=== PATIENT | male | born 1965 | race Caucasian/White ===

== ENCOUNTER 2019-07-30 05:05 | Inpatient (IN) | payer MEDICAID ==
[2019-07-30] MEDS ORDERED: ONDANSETRON 4 MG TAB.RAPDIS PO ONE (06:05)
[2019-07-30 06:32] LABS: ABSOLUTE BASOPHILS # (AUTO) 0.1 10^3/uL (0.0-0.2); ABSOLUTE EOSINOPHILS # (AUTO) 0.4 10^3/uL (0.0-0.6); ABSOLUTE LYMPHOCYTES (AUTO) 2.4 10^3/uL (0.5-4.7); ABSOLUTE MONOCYTES (AUTO) 0.6 10^3/uL (0.1-1.4); ABSOLUTE NEUT (AUTO) 6.9 10^3/uL (1.7-8.2); BASOPHILS % (AUTO) 0.7 % (0-2); EOSINOPHILS % (AUTO) 4.1 % (0-6); HEMATOCRIT 47.6 % (37.9-51.0); HEMOGLOBIN 15.7 g/dL (13.5-17.0); LYMPHOCYTES % (AUTO) 23.4 % (13-45); MEAN CORPUSCULAR HEMOGLOBIN 28.6 pg (27.0-33.4); MEAN CORPUSCULAR HGB CONC 32.9 g/dL (32.0-36.0); MEAN CORPUSCULAR VOLUME 87 fl (80-97); MONOCYTES % (AUTO) 5.5 % (3-13); PLATELET COUNT 195 10^3/uL (150-450); RED BLOOD COUNT 5.49 10^6/uL (4.35-5.55); RED CELL DISTRIBUTION WIDTH 15.8 % (11.5-14.0); SEGMENTED NEUTROPHILS % (AUTO) 66.3 % (42-78); TOTAL CELLS COUNTED % (AUTO) 100 %; WHITE BLOOD COUNT 10.4 10^3/uL (4.0-10.5)
[2019-07-30 06:51] LABS: ALBUMIN 4.4 g/dL (3.5-5.0); ALKALINE PHOSPHATASE 122 U/L (38-126); ANION GAP 19 (5-19); ASPARTATE AMINO TRANSFERASE 58 U/L (17-59); BILIRUBIN,DIRECT 0.3 mg/dL (0.0-0.4); BILIRUBIN,TOTAL 0.5 mg/dL (0.2-1.3); BLOOD UREA NITROGEN 5 mg/dL (7-20); CALCIUM 9.4 mg/dL (8.4-10.2); CARBON DIOXIDE 26 mmol/L (22-30); CHLORIDE 107 mmol/L (98-107); CREATINE KINASE 110 U/L (55-170); GLUCOSE 119 mg/dL (75-110); POTASSIUM 3.8 mmol/L (3.6-5.0); TOTAL PROTEIN 8.4 g/dL (6.3-8.2)
[2019-07-30 07:04] LABS: TROPONIN I < 0.012 ng/mL
--- NOTE | 2019-07-30 08:28 | RADIOLOGY REPORT (SQ) ---
EXAM DESCRIPTION: CHEST 2 VIEWS COMPLETED DATE/TIME: 07/30/2019 6:46 am REASON FOR STUDY: chest pain COMPARISON: None. EXAM PARAMETERS: NUMBER OF VIEWS: two views TECHNIQUE: Digital Frontal and Lateral radiographic views of the chest acquired. RADIATION DOSE: NA LIMITATIONS: none FINDINGS: LUNGS AND PLEURA: No opacities, masses or pneumothorax. No pleural effusion. MEDIASTINUM AND HILAR STRUCTURES: No masses or contour abnormalities. HEART AND VASCULAR STRUCTURES: Heart normal size. No evidence for failure. BONES: No acute findings. HARDWARE: None in the chest. OTHER: No other significant finding. IMPRESSION: NO ACUTE RADIOGRAPHIC FINDING IN THE CHEST. TECHNICAL DOCUMENTATION: JOB ID: [id number] [employer]- All Rights Reserved Reading location - IP/workstation name: [email or web address]
[2019-07-30] MEDS ORDERED: LORAZEPAM INJ 2 MG/1 ML VIAL IV ONE ×2 (09:03→10:06)
--- NOTE | 2019-07-30 09:13 | EKG REPORT ---
SEVERITY:- OTHERWISE NORMAL ECG - SINUS TACHYCARDIA : Confirmed by: Shukri Stafford MD 30-Jul-2019 09:13:05
[2019-07-30] MEDS: NORMAL SALINE 1000 ML 1,000 ML IV PRN ×3 (09:27→13:51)
--- NOTE | 2019-07-30 10:11 | ER Document Report ---
ED General - General Chief Complaint: Vomiting Stated Complaint: VOMITING/COUGH/SHAKING/LEFT ARM FEELS NUMB Time Seen by Provider: 07/30/19 09:03 Primary Care Provider: AMBER LOCK [NO LOCAL MD] - Follow up as needed Notes: 54-year-old male presents emergency department due to uncontrollable vomiting. Patient's illness apparently started with a cough, vomiting and rhinorrhea on , the vomiting and cough has been getting worse since then, patient does typically drink 7-8 beers every day and has been unable to keep any alcohol down for the past 48 hours. Significant other in the room states that when he is gotten like this before and had significant shaking like he has started to have today he has always had to be treated with Ativan for alcohol withdrawals. Patient has had a history of seizures from alcohol withdrawal in the past. Patient has not had any seizures with this episode. Patient would like to quit drinking. Complains of some intermittent right upper quadrant pain that he has had for over a month now, it does not worsen with food, it does sometimes worsen with vomiting. TRAVEL OUTSIDE OF THE [place] IN LAST 30 DAYS: No - Related Data Allergies/Adverse Reactions: ibuprofen Allergy (Verified 07/30/19 09:11) Past Medical History - General Information source: Patient - Social History Smoking Status: Never Smoker Frequency of alcohol use: Heavy Drug Abuse: None Family History: Reviewed & Not Pertinent Patient has suicidal ideation: No Patient has homicidal ideation: No - Past Medical History Cardiac Medical History: Reports: Hx Hypertension Review of Systems - Review of Systems Constitutional: See HPI, Chills, Diaphoresis, Malaise, Weakness EENT: No symptoms reported Cardiovascular: No symptoms reported Respiratory: See HPI Gastrointestinal: See HPI Neurological/Psychological: See HPI - Tremor -: Yes All other systems reviewed and negative Physical Exam - Vital signs Vitals: Temp Pulse Resp BP Pulse Ox 97.7 F 128 H 18 157/109 H 99 07/30/19 05:20 07/30/19 05:20 07/30/19 05:20 07/30/19 05:20 07/30/19 05:20 Interpretation: Hypertensive, Tachycardic - Notes Notes: GENERAL: Awake, tremor, appears mildly anxious. Does not appear to be in pain. No active vomiting on my examination though he was vomiting a lot in the waiting room. HEAD: Normocephalic, atraumatic EYES: Pupils equal, round and reactive to light, extraocular movements intact. ENT: Oral mucosa moist, tongue midline. NECK: Full range of motion, supple, trachea midline. LUNGS: Clear to auscultation bilaterally, no wheezes, rales or rhonchi, no respiratory distress. HEART: Regular rate and rhythm, no murmurs, gallops, rubs. ABDOMEN: Soft, nontender, nondistended, bowel sounds present in all 4 quadrants. EXTREMITIES: Moves all 4 extremities spontaneously, no edema, radial and dors brendan pedis pulses 2/4 bilaterally. No cyanosis. NEUROLOGICAL: Alert and oriented x3, normal speech, no facial droop, tremor that worsens with movement, biceps and patellar DTRs 2+ bilaterally. PSYCH: Mild anxiety. SKIN: Warm, Dry, normal turgor. Course - Re-evaluation Re-evalutation: 07/30/19 10:11 CBC unremarkable, CMP shows hypernatremia with a sodium of 151.7, glucose mildly elevated at 119, cardiac enzymes negative, alcohol level has been ordered, chest x-ray negative. Patient's presentation is consistent with alcohol withdrawal. 1 mg of Ativan has slowed his tremor somewhat and stopped his vomiting. Patient will be treated with another milligram of Ativan, hydrated and continue to be observed. Patient does wish to quit drinking. We will continue to reevaluate to see if he is stable to go to [place] [facility] or if he needs to be admitted here. 07/30/19 12:00 After second milligram of Ativan patient continued to have tremor and tachycardia, despite Reglan and Benadryl he does continue to have nausea, ga gging and dry heaving, cough leading to posttussive emesis despite negative chest x-ray. Patient ALFREDWA was initially 18, is now only down to 14 despite 2 of Ativan. Patient was discussed with Marina Dobson nurse practitioner, she agrees to accept the patient to her service for alcohol withdrawal. Patient will also be given albuterol and lidocaine neb to see if this will help with the coughing. - Vital Signs Vital signs: Temp Pulse Resp BP Pulse Ox 97.7 F 128 H 16 150/96 H 94 07/30/19 05:20 07/30/19 05:20 07/30/19 11:21 07/30/19 11:21 07/30/19 11:21 - Laboratory Result Diagrams: 07/30/19 06:10 07/30/19 06:10 Laboratory results interpreted by me: 07/30/19 07/30/19 06:10 06:10 RDW 15.8 H Sodium 151.7 H BUN 5 L Glucose 119 H Total Protein 8.4 H - EKG Interpretation by Me Additional EKG results interpreted by me: 07/30/19 10:12 EKG shows sinus tachycardia at a rate of 115, normal axis, normal intervals, no ST segment elevations or depressions, no T wave inversions per my interpre tation. Discharge - Discharge Clinical Impression: Alcohol abuse, Hypernatremia Alcohol withdrawal Qualifiers: Complication of substance-induced condition: uncomplicated Qualified Code(s): F10.230 - Alcohol dependence with withdrawal, uncomplicated Vomiting Qualifiers: Vomiting type: unspecified Vomiting Intractability: intractable Nausea presence: with nausea Qualified Code(s): R11.2 - Nausea with vomiting, unspecified Condition: Fair Disposition: ADMITTED INPATIENT Admitting Provider: Keith (Hospitalist) - [facility] Admitted: Telemetry Referrals: LOCALMD,NO [NO LOCAL MD] - Follow up as needed
[2019-07-30] MEDS ORDERED: DIPHENHYDRAMINE HCL 50 MG/ML VIAL IV ONE (10:43)
[2019-07-30] MEDS ORDERED: METOCLOPRAMIDE HCL INJ/PF 10 MG/2 ML SDV IV ONE (10:43)
[2019-07-30] MEDS ORDERED: ALBUTEROL SULFATE 0.083% NEB 2.5 MG/3 ML AMPUL NEB ONE (12:02)
[2019-07-30] MEDS ORDERED: LIDOCAINE 2% INJ-PF (20 MG/ML) 10 ML AMPUL NEB ONE (12:02)
[2019-07-30] MEDS ORDERED: NORMAL SALINE 1000 ML 1,000 ML IV ONE (12:47)
[2019-07-30] MEDS ORDERED: MAG HYDROX/AL HYDROX/SIMETH SUSP 30 ML UDCUP PO PRN (12:48)
[2019-07-30] MEDS ORDERED: ACETAMINOPHEN 650 MG SUPP.RECT PR PRN (12:48)
[2019-07-30] MEDS ORDERED: ALBUTEROL SULFATE 0.083% NEB 2.5 MG/3 ML AMPUL NEB PRN (12:48)
[2019-07-30] MEDS ORDERED: HYDRALAZINE HCL INJ/PF 20 MG/1 ML SDV IV PRN (12:53)
--- NOTE | 2019-07-30 13:09 | PDOC H&P ---
History of Present Illness Admission Date/PCP: 07/30/19 12:08 Patient complains of: Nausea vomiting, alcohol withdrawal History of Present Illness: CRIS VAIL is a 54 year old male with a past medical history of hypertension, GERD, alcohol dependence, and severe alcohol withdrawal (seizures, kidney failure requiring short-term dialysis, cardiac arrest) who presented to the emergency department today with a complaint of 2 to 3 days of rhinorrhea, congestion, sore throat, and nonproductive cough with posttussive emesis resulting in significant decrease in patient's daily alcohol intake. Patient reports that he drinks 7-8 beers daily had his usual intake since becoming ill with his upper respiratory infection. Evaluation in emergency department reveals obvious alcohol withdrawal with tachycardia, hypertension, diaphoresis, tremulousness, increased startle reflex, but essentially benign laboratory evaluation with normal CBC, unremarkable chemistry, normal troponins, negative chest x-ray, and EKG showing sinus tachycardia. Serum EtOH revealed alcohol level of 78. Patient has been provided 2 L normal saline bolus, IV Ativan, nebulizer treatments, and is referred to the hospitalist service for admission and management of the above-stated complaints and findings. Past Medical History Cardiac Medical History: Reports: Hypertension Pulmonary Medical History: Reports: Intubation, Respiratory Failure EENT Medical History: Reports: None Neurological Medical History: Reports: None Endocrine Medical History: Reports: None Renal/ Medical History: Reports: Other - Acute kidney failure requiring short- term dialysis Malignancy Medical History: Reports: None GI Medical History: Reports: Gastroesophageal Reflux Disease Musculoskeltal Medical History: Reports: None Psychiatric Medical History: Reports: Alcohol Dependency, General Anxiety Disorder Traumatic Medical History: Reports: None Hematology: Reports: None Infectious Medical History: Reports: None Social History Information Source: Patient, Relative Lives with: Spouse/Significant other Smoking Status: Never Smoker Electronic Cigarette use?: No Frequency of Alcohol Use: Heavy Last Alcohol Use: 07/28/19 Hx Recreational Drug Use: No Drugs: None Hx Prescription Drug Abuse: No - Advance Directive Resuscitation Status: Full Code Surrogate healthcare decision maker:: The patient's , Verna Amaya, Family History Family History: Reviewed & Not Pertinent Parental Family History Reviewed: Yes Children Family History Reviewed: Yes Sibling(s) Family History Reviewed.: Yes Medication/Allergy Allergies/Adverse Reactions: ibuprofen Allergy (Verified 07/30/19 09:11) Review of Systems Constitutional: ABSENT: chills, fever(s), headache(s), weight gain, weight loss Eyes: ABSENT: visual disturbances Ears: ABSENT: hearing changes Nose, Mouth, and Throat: PRESENT: as per HPI, sore throat Cardiovascular: ABSENT: chest pain, dyspnea on exertion, edema, orthropnea, palpitations Respiratory: PRESENT: cough. ABSENT: hemoptysis Gastrointestinal: PRESENT: nausea, vomiting. ABSENT: abdominal pain, constipation, diarrhea, hematemesis, hematochezia Genitourinary: ABSENT: dysuria, hematuria Musculoskeletal: ABSENT: joint swelling Integumentary: ABSENT: rash, wounds Neurological: PRESENT: confusion, tremor(s), weakness. ABSENT: abnormal gait, abnormal speech, dizziness, focal weakness, syncope Psychiatric: PRESENT: anxiety. ABSENT: depression, homidical ideation, suicidal ideation Endocrine: ABSENT: cold intolerance, heat intolerance, polydipsia, polyuria Hematologic/Lymphatic: ABSENT: easy bleeding, easy bruising Physical Exam Vital Signs: Temp Pulse Resp BP Pulse Ox 97.7 F 128 H 20 157/93 H 96 07/30/19 05:20 07/30/19 05:20 07/30/19 12:01 07/30/19 12:01 07/30/19 12:01 Intake & Output 07/29/19 07/30/19 07/31/19 06:59 06:59 06:59 Intake Total 1999 Balance 1999 Weight 79.9 kg General appearance: PRESENT: disheveled, mild distress, well-developed, well- nourished Head exam: PRESENT: atraumatic, normocephalic Eye exam: PRESENT: conjunctiva pink, EOMI, PERRLA. ABSENT: scleral icterus Ear exam: PRESENT: normal external ear exam Mouth exam: PRESENT: dry mucosa, tongue midline Respiratory exam: PRESENT: rhonchi, symmetrical, unlabored. ABSENT: rales, wheezes Cardiovascular exam: PRESENT: RRR, +S1, +S2, tachycardia. ABSENT: diastolic murmur, rubs, systolic murmur Pulses: PRESENT: normal dorsalis pedis pul Vascular exam: PRESENT: normal capillary refill GI/Abdominal exam: PRESENT: hypoactive bowel sounds, normal bowel sounds, soft. ABSENT: distended, guarding, mass, organolmegaly, rebound, tenderness Rectal exam: PRESENT: deferred Extremities exam: PRESENT: full ROM. ABSENT: calf tenderness, clubbing, pedal edema Neurological exam: PRESENT: alert, awake, oriented to person, oriented to place, oriented to time, oriented to situation, CN II-XII grossly intact, other - Diaphoretic, tremulous. ABSENT: motor sensory deficit Psychiatric exam: PRESENT: appropriate affect, normal mood. ABSENT: homicidal ideation, suicidal ideation Skin exam: PRESENT: dry, intact, warm. ABSENT: cyanosis, rash Results Laboratory Results: 07/30/19 06:10 07/30/19 06:10 07/30/19 07/30/19 07/30/19 06:10 06:10 09:20 WBC 10.4 RBC 5.49 Hgb 15.7 Hct 47.6 MCV 87 MCH 28.6 MCHC 32.9 RDW 15.8 H Plt Count 195 Seg Neutrophils % 66.3 Sodium 151.7 H Potassium 3.8 Chloride 107 Carbon Dioxide 26 Anion Gap 19 BUN 5 L Creatinine 1.03 Est GFR ( Amer) > 60 Glucose 119 H Calcium 9.4 Total Bilirubin 0.5 AST 58 Alkaline Phosphatase 122 Total Protein 8.4 H Albumin 4.4 Lipase 59.1 07/30/19 07/30/19 07/30/19 06:10 06:10 09:20 Creatine Kinase 110 CK-MB (CK-2) 0.90 Troponin I < 0.012 < 0.012 Impressions: Chest X-Ray 07/30/19 00:00 IMPRESSION: NO ACUTE RADIOGRAPHIC FINDING IN THE CHEST. Assessment and Plan - Diagnosis (1) Alcohol withdrawal Qualifiers: Complication of substance-induced condition: uncomplicated Qualified Code(s): F10.230 - Alcohol dependence with withdrawal, uncomplicated Is this a current diagnosis for this admission?: Yes Plan: Patient is admitted to [facility] on continuous cardiac telemetry. Start scheduled IV Valium. As needed IV Ativan. IV hydralazine as needed for blood pressure control. Continue generous IV fluids. Thiamine and folic acid replacement. Clear liquid diet; advance as tolerated Antiemetics as needed. PPI. Fall, seizure, aspiration precautions. (2) Tachycardia Is this a current diagnosis for this admission?: Yes Plan: Secondary to #1. Possibly also related to inability to tolerate prescribed Coreg for the last several days. Management of alcohol withdrawal as above. Continue home dose Coreg. Monitor on telemetry. (3) Hypertension Qualifiers: Hypertension type: essential hypertension Qualified Code(s): I10 - Essential (primary) hypertension Is this a current diagnosis for this admission?: Yes Plan: Complicated by acute alcohol withdrawal. Continue home dose Coreg. IV hydralazine as needed for blood pressure control. Management of alcohol withdrawal as above. (4) Alcohol dependence Qualifiers: Substance use status: in withdrawal Complication of substance-induced condition: uncomplicated Qualified Code(s): F10.230 - Alcohol dependence with withdrawal, uncomplicated Is this a current diagnosis for this admission?: Yes Plan: Discharge planning and patient navigator consulted. (5) Hypernatremia Is this a current diagnosis for this admission?: Yes Plan: Continue IV fluids. Follow-up chemistry. (6) Vomiting Qualifiers: Vomiting type: unspecified Vomiting Intractability: intractable Nausea presence: with nausea Qualified Code(s): R11.2 - Nausea with vomiting, unspecified Is this a current diagnosis for this admission?: Yes Plan: Secondary to #1. Management as above. (7) URI (upper respiratory infection) Qualifiers: URI type: unspecified viral URI Qualified Code(s): J06.9 - Acute upper respiratory infection, unspecified Is this a current diagnosis for this admission?: Yes Plan: Chest x-ray negative. Patient denies fever; does not appear acutely infectious. Supportive care/symptom management. Flonase. Robitussin as needed. - Time Time Spent with patient: 35 or more minutes Medications reviewed and adjusted accordingly: Yes Anticipated discharge: Home Within: within 72 hours - Inpatient Certification Based on my medical assessment, after consideration of the patient's comorbidities, presenting symptoms, or acuity I expect that the services needed warrant INPATIENT care.: Yes I certify that my determination is in accordance with my understanding of Medicare's requirements for reasonable and necessary INPATIENT services [42 CFR 412.3e].: Yes Medical Necessity: Need For IV Fluids, Need For Continuous Telemetry Monitoring
[2019-07-30] MEDS ORDERED: METOPROLOL TARTRATE PF/INJ 5 MG/5 ML SDV IV ONE (13:30)
[2019-07-30] MEDS: DIAZEPAM INJ 10 MG/2 ML DISP.SYRIN IV SCH ×2 (13:46→21:31)
[2019-07-30] MEDS: HEPARIN SOD (PORCINE) 5,000 UNIT/ML 1 ML VIAL SUBCUT SCH ×2 (15:05→21:31)
[2019-07-30] MEDS ORDERED: FLUTICASONE NASAL SPRAY 50 MCG/SPRY 120 SPRAY/16 GM NASL ONE (16:00)
[2019-07-30] MEDS: PROMETHAZINE HCL INJ 25 MG/1 ML VIAL IV PRN (16:30)
[2019-07-30] MEDS ORDERED: INFLUENZA QUAD (6MOS+) 2019-20 VAC 0.5 ML SYR IM ONE (17:43)
[2019-07-30] MEDS: NORMAL SALINE 1000 ML 1,000 ML with POTASSIUM CHLORIDE 20 MEQ, MAGNESIUM SULFATE 8 MEQ,... IV SCH ×5 (17:46)
[2019-07-30] MEDS: LORAZEPAM INJ 2 MG/1 ML VIAL IV PRN (17:50)
[2019-07-30] MEDS: ACETAMINOPHEN 325 MG TABLET PO PRN (21:30)
[2019-07-30] MEDS: CARVEDILOL 6.25 MG TABLET PO SCH (21:30)
[2019-07-30] MEDS: PANTOPRAZOLE SODIUM 40 MG VIAL IV SCH (21:31)
[2019-07-31] MEDS: DIAZEPAM INJ 10 MG/2 ML DISP.SYRIN IV SCH ×4 (01:52→17:48)
[2019-07-31] MEDS: GUAIFENESIN SYRP 200 MG/10 ML UDC PO PRN ×4 (01:58→22:26)
[2019-07-31] MEDS: ACETAMINOPHEN 325 MG TABLET PO PRN (04:20)
[2019-07-31] MEDS: ONDANSETRON 4 MG TAB.RAPDIS PO PRN ×2 (04:22→13:15)
[2019-07-31 05:32] LABS: HEMATOCRIT 37.8 % (37.9-51.0); MEAN CORPUSCULAR HGB CONC 33.5 g/dL (32.0-36.0); MEAN CORPUSCULAR VOLUME 87 fl (80-97); PLATELET COUNT 114 10^3/uL (150-450); RED BLOOD COUNT 4.37 10^6/uL (4.35-5.55); WHITE BLOOD COUNT 6.1 10^3/uL (4.0-10.5)
[2019-07-31 05:41] LABS: HEMOGLOBIN 12.7 g/dL (13.5-17.0)
[2019-07-31 05:54] LABS: ANION GAP 8 (5-19); BLOOD UREA NITROGEN 3 mg/dL (7-20); CALCIUM 7.9 mg/dL (8.4-10.2); CARBON DIOXIDE 25 mmol/L (22-30); CHLORIDE 111 mmol/L (98-107); GLUCOSE 86 mg/dL (75-110); POTASSIUM 3.4 mmol/L (3.6-5.0)
[2019-07-31] MEDS: HEPARIN SOD (PORCINE) 5,000 UNIT/ML 1 ML VIAL SUBCUT SCH ×3 (06:04→21:22)
[2019-07-31] MEDS: NORMAL SALINE 1000 ML 1,000 ML IV PRN ×2 (07:02→16:30)
[2019-07-31] MEDS: PROMETHAZINE HCL INJ 25 MG/1 ML VIAL IV PRN (10:26)
[2019-07-31] MEDS: PANTOPRAZOLE SODIUM 40 MG VIAL IV SCH ×2 (10:26→21:22)
[2019-07-31] MEDS: LORAZEPAM INJ 2 MG/1 ML VIAL IV PRN (10:26)
[2019-07-31] MEDS: FLUTICASONE NASAL SPRAY 50 MCG/SPRY 120 SPRAY/16 GM NASL SCH (10:27)
[2019-07-31] MEDS: CARVEDILOL 6.25 MG TABLET PO SCH ×2 (10:27→21:22)
--- NOTE | 2019-07-31 13:03 | PDOC PROGRESS REPORT ---
Subjective Progress Note for:: 07/31/19 Subjective:: CRIS VAIL is a 54 year old male with a past medical history of hypertension, GERD, alcohol dependence, and severe alcohol withdrawal (seizures, kidney failure requiring short-term dialysis, cardiac arrest) who was admitted 07/30/2023 EtOH withdrawal. Patient was seen on morning rounds with his significant other present. He is found resting in bed, comfortably, on room air. He reports he is feeling much better today. He does have continued nausea and generalized abdominal discomfort, but without emesis. He continues to have diaphoresis and hand tremors although these are also significantly improved as compared to yesterday. He denies interest in inpatient alcohol rehabilitation services. He does ask about possible discharge prescription of Antabuse. Otherwise he has no questions or concerns at this time. He denies fever, chills, chest pain, palpitations, dyspnea. No concerns per nursing. Reason For Visit: ALCOHOL WITHDRAWAL, ALCOHOL ABUSE, HYPERNATREMIA, Physical Exam Vital Signs: Temp Pulse Resp BP Pulse Ox 97.5 F 85 18 146/92 H 95 07/31/19 11:32 07/31/19 11:32 07/31/19 11:32 07/31/19 11:32 07/31/19 11:32 Intake & Output 07/30/19 07/31/19 08/01/19 06:59 06:59 06:59 Intake Total 4023 1000 Balance 4023 1000 Weight 79.9 kg 75.6 kg General appearance: PRESENT: no acute distress, cooperative, well-developed, well-nourished Head exam: PRESENT: atraumatic, normocephalic Eye exam: PRESENT: conjunctiva pink, EOMI, PERRLA. ABSENT: scleral icterus Ear exam: PRESENT: normal external ear exam Mouth exam: PRESENT: moist, tongue midline Respiratory exam: PRESENT: clear to auscultation sylvester, symmetrical, unlabored. ABSENT: rales, rhonchi, wheezes Cardiovascular exam: PRESENT: RRR, +S1, +S2. ABSENT: diastolic murmur, rubs, systolic murmur Pulses: PRESENT: normal dorsalis pedis pul Vascular exam: PRESENT: normal capillary refill GI/Abdominal exam: PRESENT: normal bowel sounds, soft. ABSENT: distended, guarding, mass, organolmegaly, rebound, tenderness Rectal exam: PRESENT: deferred Extremities exam: PRESENT: full ROM. ABSENT: calf tenderness, clubbing, pedal edema Neurological exam: PRESENT: alert, awake, oriented to person, oriented to place, oriented to time, oriented to situation, CN II-XII grossly intact, other - Tremulous. ABSENT: motor sensory deficit Psychiatric exam: PRESENT: anxious, appropriate affect, normal mood. ABSENT: homicidal ideation, suicidal ideation Skin exam: PRESENT: dry, intact, warm. ABSENT: cyanosis, rash Results Laboratory Results: 07/31/19 04:30 07/31/19 04:30 07/31/19 07/31/19 04:30 04:30 WBC 6.1 RBC 4.37 Hgb 12.7 L D Hct 37.8 L MCV 87 MCH 29.0 MCHC 33.5 RDW 16.0 H Plt Count 114 L Sodium 143.6 Potassium 3.4 L Chloride 111 H Carbon Dioxide 25 Anion Gap 8 BUN 3 L Creatinine 0.78 Est GFR ( Amer) > 60 Glucose 86 Calcium 7.9 L 07/30/19 07/30/19 07/30/19 06:10 06:10 09:20 Creatine Kinase 110 CK-MB (CK-2) 0.90 Troponin I < 0.012 < 0.012 Impressions: Chest X-Ray 07/30/19 00:00 IMPRESSION: NO ACUTE RADIOGRAPHIC FINDING IN THE CHEST. Assessment and Plan - Diagnosis (1) Alcohol withdrawal Qualifiers: Complication of substance-induced condition: uncomplicated Qualified Co de(s): F10.230 - Alcohol dependence with withdrawal, uncomplicated Is this a current diagnosis for this admission?: Yes Plan: Patient is admitted to [facility] on continuous cardiac telemetry. Start scheduled IV Valium; will begin weaning tomorrow. As needed IV Ativan. IV hydralazine as needed for blood pressure control. Continue generous IV fluids. Thiamine and folic acid replacement. Clear liquid diet; advance as tolerated Antiemetics as needed. PPI. Fall, seizure, aspiration precautions. (2) Tachycardia Is this a current diagnosis for this admission?: Yes Plan: Improved. Secondary to #1. Management of alcohol withdrawal as above. Continue home dose Coreg. Monitor on telemetry. (3) Hypertension Qualifiers: Hypertension type: essential hypertension Qualified Code(s): I10 - Essentia l (primary) hypertension Is this a current diagnosis for this admission?: Yes Plan: Complicated by acute alcohol withdrawal. Continue home dose Coreg. IV hydralazine as needed for blood pressure control. Management of alcohol withdrawal as above. (4) Alcohol dependence Qualifiers: Substance use status: in withdrawal Complication of substance-induced condition: uncomplicated Qualified Code(s): F10.230 - Alcohol dependence with withdrawal, uncomplicated Is this a current diagnosis for this admission?: Yes Plan: Discharge planning and patient navigator consulted. (5) Hypernatremia Is this a current diagnosis for this admission?: Yes Plan: Resolved. Continue IV fluids. Follow-up chemistry. (6) Vomiting Qualifiers: Vomiting type: unspecified Vomiting Intractability: intractable Nausea presence: with nausea Qualified Code(s): R11.2 - Nausea with vomiting, unspecified Is this a current diagnosis for this admission?: Yes Plan: Secondary to #1. Management as above. (7) URI (upper respiratory infection) Qualifiers: URI type: unspecified viral URI Qualified Code(s): J06.9 - Acute upper respiratory infection, unspecified Is this a current diagnosis for this admission?: Yes Plan: Chest x-ray negative. Patient denies fever; does not appear acutely infectious. Supportive care/symptom management. Flonase. Robitussin as needed.
[2019-07-31] MEDS: NORMAL SALINE 1000 ML 1,000 ML with POTASSIUM CHLORIDE 20 MEQ, MAGNESIUM SULFATE 8 MEQ,... IV SCH ×5 (17:47)
[2019-08-01] MEDS: DIAZEPAM INJ 10 MG/2 ML DISP.SYRIN IV SCH ×4 (00:21→20:44)
[2019-08-01] MEDS: LORAZEPAM INJ 2 MG/1 ML VIAL IV PRN ×3 (06:07→21:38)
[2019-08-01] MEDS: HEPARIN SOD (PORCINE) 5,000 UNIT/ML 1 ML VIAL SUBCUT SCH ×3 (06:19→21:38)
[2019-08-01 06:47] LABS: HEMATOCRIT 40.3 % (37.9-51.0); HEMOGLOBIN 13.6 g/dL (13.5-17.0); MEAN CORPUSCULAR HEMOGLOBIN 29.1 pg (27.0-33.4); MEAN CORPUSCULAR HGB CONC 33.6 g/dL (32.0-36.0); MEAN CORPUSCULAR VOLUME 86 fl (80-97); PLATELET COUNT 123 10^3/uL (150-450); RED BLOOD COUNT 4.67 10^6/uL (4.35-5.55); RED CELL DISTRIBUTION WIDTH 15.6 % (11.5-14.0); WHITE BLOOD COUNT 6.3 10^3/uL (4.0-10.5)
[2019-08-01] MEDS ORDERED: HALOPERIDOL LACTATE INJ 5 MG/1 ML VIAL ONE (06:54)
[2019-08-01] MEDS ORDERED: LORAZEPAM INJ 2 MG/1 ML VIAL ONE ×2 (06:55→07:55)
[2019-08-01] MEDS ORDERED: HALOPERIDOL LACTATE INJ 5 MG/1 ML VIAL IV ONE (07:00)
[2019-08-01] MEDS ORDERED: LORAZEPAM INJ 2 MG/1 ML VIAL IV ONE ×2 (07:00→08:15)
[2019-08-01 07:07] LABS: ANION GAP 8 (5-19); BLOOD UREA NITROGEN 2 mg/dL (7-20); CALCIUM 8.4 mg/dL (8.4-10.2); CARBON DIOXIDE 24 mmol/L (22-30); CHLORIDE 110 mmol/L (98-107); GLUCOSE 83 mg/dL (75-110); POTASSIUM 3.4 mmol/L (3.6-5.0)
[2019-08-01] MEDS ORDERED: HALOPERIDOL 5 MG TABLET PO PRN (07:25)
--- NOTE | 2019-08-01 08:47 | PDOC PROGRESS REPORT ---
Subjective Progress Note for:: 08/01/19 Subjective:: CRIS VAIL is a 54 year old male with a past medical history of hypertension, GERD, alcohol dependence, and severe alcohol withdrawal (seizures, kidney failure requiring short-term dialysis, cardiac arrest) who was admitted 07/30/2023 EtOH withdrawal. Patient was seen on morning rounds. He is found resting in bed, on room air, and currently in 3 point restraints. He is alert and orientated to self and year. He tells me that he has been kidnapped and that people are accusing him of IVDU. He asks me to help call his girlfriend so that she knows where he is and doesn't worry; per nursing, girlfriend left shortly before my arrival. During our discussion, he does continue to pull and kick out of the restraints. He denies fever, chills, chest pain, palpitations, dyspnea, abdominal pain. Patient received scheduled Valium 10 mg IV at ~6am, Ativan 2 mg IV shortly after. Approximately 25 minutes later, patient was found in another patient's room, IV having been removed, and acutely agitated. He was ordered Haldol 5mg IV and another Ativan 4 mg IV at that time. At the time of my visit, (~8:20 am) patient is still agitated and pulling at restraints. Due to agitation, need for large amount of benzos, and likely need for 4 point restraints, I have discussed the patient with Dr. Cedillo. He has graciously agreed to accept the patient to the ICU for management of EtOH withdrawal with delirium. Reason For Visit: ALCOHOL WITHDRAWAL Physical Exam Vital Signs: Temp Pulse Resp BP Pulse Ox 98.5 F 87 21 H 143/91 H 96 08/01/19 04:14 08/01/19 06:43 08/01/19 04:14 08/01/19 04:14 08/01/19 04:14 Intake & Output 07/31/19 08/01/19 08/02/19 06:59 06:59 06:59 Intake Total 4023 3479 Output Total 4470 Balance 4023 1629 Weight 75.6 kg 77.4 kg General appearance: PRESENT: no acute distress, disheveled, well-developed, well-nourished - overweight. ABSENT: cooperative Head exam: PRESENT: atraumatic, normocephalic Eye exam: PRESENT: conjunctiva pink, EOMI, PERRLA. ABSENT: scleral icterus Ear exam: PRESENT: normal external ear exam Mouth exam: PRESENT: moist, tongue midline Teeth exam: PRESENT: poor dentation Respiratory exam: PRESENT: clear to auscultation sylvester, symmetrical, unlabored. ABSENT: rales, rhonchi, wheezes Cardiovascular exam: PRESENT: RRR, +S1, +S2, tachycardia. ABSENT: diastolic murmur, rubs, systolic murmur Pulses: PRESENT: normal dorsalis pedis pul Vascular exam: PRESENT: normal capillary refill GI/Abdominal exam: PRESENT: normal bowel sounds, soft. ABSENT: distended, guarding, mass, organolmegaly, rebound, tenderness Rectal exam: PRESENT: deferred Extremities exam: PRESENT: full ROM. ABSENT: calf tenderness, clubbing, pedal edema Musculoskeletal exam: PRESENT: ambulatory Neurological exam: PRESENT: alert, awake, oriented to person, oriented to place, CN II-XII grossly intact, other - Acutely agitated, diaphoretic, tremulous.. ABSENT: oriented to time, oriented to situation, motor sensory deficit Psychiatric exam: PRESENT: agitated, appropriate affect. ABSENT: homicidal ideation, suicidal ideation Skin exam: PRESENT: dry, intact, warm. ABSENT: cyanosis, rash Results Laboratory Results: 08/01/19 06:39 08/01/19 06:39 08/01/19 08/01/19 06:39 06:39 WBC 6.3 RBC 4.67 Hgb 13.6 Hct 40.3 MCV 86 MCH 29.1 MCHC 33.6 RDW 15.6 H Plt Count 123 L Sodium 141.9 Potassium 3.4 L Chloride 110 H Carbon Dioxide 24 Anion Gap 8 BUN 2 L Creatinine 0.74 Est GFR ( Amer) > 60 Glucose 83 Calcium 8.4 07/30/19 07/30/19 07/30/19 06:10 06:10 09:20 Creatine Kinase 110 CK-MB (CK-2) 0.90 Troponin I < 0.012 < 0.012 Impressions: Chest X-Ray 07/30/19 00:00 IMPRESSION: NO ACUTE RADIOGRAPHIC FINDING IN THE CHEST. Assessment and Plan - Diagnosis (1) Alcohol withdrawal Qualifiers: Complication of substance-induced condition: with delirium Qualified Code(s): F10.231 - Alcohol dependence with withdrawal delirium Is this a current diagnosis for this admission?: Yes Plan: Discussed with Dr. Cedillo; patient is upgraded to the ICU. Start scheduled IV Valium. As needed IV Ativan. As needed IV Haldol. IV hydralazine as needed for blood pressure control. Continue generous IV fluids. Thiamine and folic acid replacement. Clear liquid diet; advance as tolerated Antiemetics as needed. PPI. Fall, seizure, aspiration precautions. (2) Tachycardia Is this a current diagnosis for this admission?: Yes Plan: Improved. Secondary to #1. Management of alcohol withdrawal as above. Continue home dose Coreg. Monitor on telemetry. (3) Hypertension Qualifiers: Hypertension type: essential hypertension Qualified Code(s): I10 - Essential (primary) hypertension Is this a current diagnosis for this admission?: Yes Plan: Complicated by acute alcohol withdrawal. Continue home dose Coreg. IV hydralazine as needed for blood pressure control. Management of alcohol withdrawal as above. (4) Alcohol dependence Qualifiers: Substance use status: in withdrawal Complication of substance-induced condition: uncomplicated Qualified Code(s): F10.230 - Alcohol dependence with withdrawal, uncomplicated Is this a current diagnosis for this admission?: Yes Plan: Discharge planning and patient navigator consulted. (5) Hypernatremia Is this a current diagnosis for this admission?: Yes Plan: Resolved. Continue IV fluids. Follow-up chemistry. (6) Vomiting Qualifiers: Vomiting type: unspecified Vomiting Intractability: intractable Nausea presence: with nausea Qualified Code(s): R11.2 - Nausea with vomiting, unspecified Is this a current diagnosis for this admission?: Yes Plan: Secondary to #1. Management as above. (7) URI (upper respiratory infection) Qualifiers: URI type: unspecified viral URI Qualified Code(s): J06.9 - Acute upper respiratory infection, unspecified Is this a current diagnosis for this admission?: Yes Plan: Chest x-ray negative. Patient denies fever; does not appear acutely infectious. Supportive care/symptom management. Flonase. Robitussin as needed. - Time Time Spent with patient: 25-34 minutes Medications reviewed and adjusted accordingly: Yes
[2019-08-01] MEDS: NORMAL SALINE 1000 ML 1,000 ML IV PRN (09:15)
--- NOTE | 2019-08-01 09:22 | CRITICAL CARE ADMISSION REPORT ---
HPI Date:: 08/01/19 Time:: 08:30 Reason for ICU Reason:: High dose benzodiazipines for ETOH WD. Need for 4 pt restraints. Possible intubation. HPI: This patient is a 54 yop man with a well documented history of drinking alcohol. He has been through a violent alcohol WD several years ago requiring intubation. ARF with temporary dialysis. He requests to stop drinking and has been suffering WD for more than 2 days and according to RN and hospitalist staff his needs have been escalating. He is a safety risk. Needs 4 point restraints and probably more ativan. This will be accomplished in an ICU setting. History obtained from:: Patient (confused) Marina Dobson, wait staff, old records. - Diagnosis/Plan (1) Alcohol dependence Qualifiers: Substance use status: in withdrawal Complication of substance-induced condition: uncomplicated Qualified Code(s): F10.230 - Alcohol dependence with withdrawal, uncomplicated Is this a current diagnosis for this admission?: Yes Plan: Patient wishes to quit. Prefers no in patient rehab. Will reassess when withdrawal has run its course. (2) Alcohol withdrawal Qualifiers: Complication of substance-induced condition: with delirium Qualified Code(s): F10.231 - Alcohol dependence with withdrawal delirium Is this a current diagnosis for this admission?: Yes Plan: Right now he needs 4-point restraints, more ativan, possibly precedex. (3) Vomiting Qualifiers: Vomiting type: unspecified Vomiting Intractability: intractable Nausea presence: with nausea Qualified Code(s): R11.2 - Nausea with vomiting, unspecified Is this a current diagnosis for this admission?: Yes Plan: Seems resolved, may be related to withdrawal. (4) Hypernatremia Is this a current diagnosis for this admission?: Yes Plan: Sodium 142. Resolved. - . Plan Summary: Four point restraints. Hihger level of ativan. Precedex. Past Medical History Cardiac Medical History: Reports: Hypertension Pulmonary Medical History: Reports: Intubation, Respiratory Failure EENT Medical History: Reports: None Neurological Medical History: Reports: None Endocrine Medical History: Reports: None Renal/ Medical History: Reports: Other - Acute kidney failure requiring short- term dialysis Malignancy Medical History: Reports: None GI Medical History: Reports: Gastroesophageal Reflux Disease Musculoskeltal Medical History: Reports: None Psychiatric Medical History: Reports: Alcohol Dependency, Depression - ALYX, General Anxiety Disorder Traumatic Medical History: Reports: None Hematology: Reports: None Infectious Medical History: Reports: None Social/Family History - Social History Lives with: Spouse/Significant other Smoking Status: Never Smoker Frequency of Alcohol Use: Heavy Hx Recreational Drug Use: No Drugs: None Hx Prescription Drug Abuse: No - Medication/Allergies Home Medications: No Home Medications 07/30/19 Allergies/Adverse Reactions: ibuprofen Allergy (Verified 07/30/19 09:11) Review of Systems ROS unobtainable: Due to mental status Physical Exam Vital Signs: Temp Pulse Resp BP Pulse Ox 98.2 F 87 19 145/92 H 97 08/01/19 08:10 08/01/19 08:10 08/01/19 08:10 08/01/19 08:10 08/01/19 08:10 Intake & Output 07/31/19 08/01/19 08/02/19 06:59 06:59 06:59 Intake Total 4023 3479 Output Total 1850 Balance 4023 1629 Weight 75.6 kg 77.4 kg Weight/Height Weight 77.4 kg Height 5 ft 10 in General appearance: PRESENT: no acute distress, disheveled Exam: Confused Head exam: PRESENT: atraumatic, normocephalic Eye exam: PRESENT: conjunctiva pink, EOMI, PERRLA. ABSENT: scleral icterus Ear exam: PRESENT: normal external ear exam Mouth exam: PRESENT: moist, tongue midline Respiratory exam: PRESENT: clear to auscultation sylvester. ABSENT: rales, rhonchi, wheezes Cardiovascular exam: PRESENT: RRR. ABSENT: diastolic murmur, rubs, systolic murmur GI/Abdominal exam: PRESENT: normal bowel sounds, soft. ABSENT: distended, guarding, mass, organolmegaly, rebound, tenderness Rectal exam: PRESENT: deferred Extremities exam: PRESENT: full ROM. ABSENT: calf tenderness, clubbing, pedal edema Musculoskeletal exam: PRESENT: normal inspection Neurological exam: PRESENT: alert, altered, awake, oriented to person Psychiatric exam: PRESENT: agitated, anxious Skin exam: PRESENT: dry, intact, warm. ABSENT: cyanosis, rash Laboratory/Radiographs Laboratory Results: 08/01/19 06:39 08/01/19 06:39 08/01/19 08/01/19 06:39 06:39 WBC 6.3 RBC 4.67 Hgb 13.6 Hct 40.3 MCV 86 MCH 29.1 MCHC 33.6 RDW 15.6 H Plt Count 123 L Sodium 141.9 Potassium 3.4 L Chloride 110 H Carbon Dioxide 24 Anion Gap 8 BUN 2 L Creatinine 0.74 Est GFR ( Amer) > 60 Glucose 83 Calcium 8.4 07/30/19 07/30/19 07/30/19 06:10 06:10 09:20 Creatine Kinase 110 CK-MB (CK-2) 0.90 Troponin I < 0.012 < 0.012 Impressions: Chest X-Ray 07/30/19 00:00 IMPRESSION: NO ACUTE RADIOGRAPHIC FINDING IN THE CHEST. All labs, radiographs, diagnostic studies and EKGs were personally reviewed: Yes In addition, reports of radiographic and diagnostic studies were read: Yes Critical Time Critical Time (minutes): 30 -: The care of a critically ill patient is dynamic. This note represents a static moment in the admission process. Orders and treatments may be given simultaneously and urgently, and time is not business center representative of the treatment process. This patient requires Critical Care secondary to life threatening organ or limb dysfunction. Without Critical Care services, the patient is at risk for increased mortality and morbidity.
[2019-08-01] MEDS: PROMETHAZINE HCL INJ 25 MG/1 ML VIAL IV PRN (09:54)
[2019-08-01] MEDS ORDERED: DEXMEDETOMIDINE IN 0.9 % NACL 400 MCG/100 ML RTUPB IV ONE (10:47)
[2019-08-01] MEDS ORDERED: LORAZEPAM INJ 2 MG/1 ML VIAL IV PRN ×2 (10:47→10:49)
[2019-08-01] MEDS: DEXMEDETOMIDINE IN NS 400 MCG/100 ML RTUPB IV PRN ×2 (10:50→17:00)
[2019-08-01] MEDS: CARVEDILOL 6.25 MG TABLET PO SCH ×2 (11:27→21:38)
[2019-08-01] MEDS: FLUTICASONE NASAL SPRAY 50 MCG/SPRY 120 SPRAY/16 GM NASL SCH (11:27)
[2019-08-01] MEDS: PANTOPRAZOLE SODIUM 40 MG VIAL IV SCH ×2 (13:58→21:39)
[2019-08-01] MEDS: NORMAL SALINE 1000 ML 1,000 ML with POTASSIUM CHLORIDE 20 MEQ, MAGNESIUM SULFATE 8 MEQ,... IV SCH ×5 (17:39)
[2019-08-02] MEDS: DIAZEPAM INJ 10 MG/2 ML DISP.SYRIN IV SCH ×5 (00:20→23:55)
[2019-08-02] MEDS: NORMAL SALINE 1000 ML 1,000 ML IV PRN ×2 (00:20→17:48)
[2019-08-02] MEDS: POTASSI CL 20 MEQ/50 ML RIDER 20 MEQ/50 ML RTUPB IV SCH ×2 (00:20→01:52)
[2019-08-02] MEDS: LORAZEPAM INJ 2 MG/1 ML VIAL IV PRN (02:14)
[2019-08-02 04:32] LABS: ANION GAP 7 (5-19); BLOOD UREA NITROGEN 5 mg/dL (7-20); CALCIUM 7.9 mg/dL (8.4-10.2); CARBON DIOXIDE 24 mmol/L (22-30); CHLORIDE 110 mmol/L (98-107); GLUCOSE 77 mg/dL (75-110); PHOSPHORUS 3.5 mg/dL (2.5-4.5)
[2019-08-02 04:39] LABS: POTASSIUM 4.5 mmol/L (3.6-5.0)
[2019-08-02] MEDS: DEXMEDETOMIDINE IN NS 400 MCG/100 ML RTUPB IV PRN (05:06)
[2019-08-02] MEDS: HEPARIN SOD (PORCINE) 5,000 UNIT/ML 1 ML VIAL SUBCUT SCH ×3 (05:13→21:26)
[2019-08-02] MEDS: CARVEDILOL 6.25 MG TABLET PO SCH ×2 (10:33→21:26)
[2019-08-02] MEDS: FLUTICASONE NASAL SPRAY 50 MCG/SPRY 120 SPRAY/16 GM NASL SCH (10:33)
--- NOTE | 2019-08-02 11:39 | PDOC CRITICAL CARE PROG REPORT ---
General Date:: 08/02/19 ICU Day:: 2 Hospital Day:: 3 Resuscitation Status: Full Code Events in the past 12 to 24 Hours:: Much more lucid Review of systems relevant to events:: Neurological and CV Reason for ICU Addmission:: High dose benzodiazipines for ETOH WD. Need for 4 pt restraints. Possible intubation. - Medications: Medications reviewed and adjusted accordingly: Yes Vasopressors:: None Sedation:: Precedex off this AM Physical Exam Vital Signs: Temp Pulse Resp BP Pulse Ox 98.4 F 78 22 H 117/80 94 08/02/19 10:00 08/02/19 10:00 08/02/19 10:00 08/02/19 10:00 08/02/19 10:00 Intake & Output 08/01/19 08/02/19 08/03/19 06:59 06:59 06:59 Intake Total 3479 2094 1049 Output Total 1850 2475 150 Balance 1629 -381 899 Weight 77.4 kg 81.7 kg Weight/Height Weight 81.7 kg Height 5 ft 10 in General appearance: PRESENT: no acute distress, well-developed, well-nourished Head exam: PRESENT: atraumatic, normocephalic Eye exam: PRESENT: conjunctiva pink, EOMI, PERRLA. ABSENT: scleral icterus Ear exam: PRESENT: normal external ear exam Mouth exam: PRESENT: moist, tongue midline Respiratory exam: PRESENT: clear to auscultation sylvester. ABSENT: rales, rhonchi, wheezes Cardiovascular exam: PRESENT: RRR. ABSENT: diastolic murmur, rubs, systolic murmur GI/Abdominal exam: PRESENT: normal bowel sounds, soft. ABSENT: distended, guarding, mass, organolmegaly, rebound, tenderness Rectal exam: PRESENT: deferred Extremities exam: PRESENT: full ROM. ABSENT: calf tenderness, clubbing, pedal edema Neurological exam: PRESENT: alert, altered, awake, oriented to person, oriented to place Skin exam: PRESENT: dry, intact, warm. ABSENT: cyanosis, rash Laboratory/Radiographs Laboratory Results: 08/01/19 06:39 08/02/19 03:56 08/02/19 03:56 Sodium 140.7 Potassium 4.5 D Chloride 110 H Carbon Dioxide 24 Anion Gap 7 BUN 5 L Creatinine 0.76 Est GFR ( Amer) > 60 Glucose 77 Calcium 7.9 L Phosphorus 3.5 Magnesium 1.7 07/30/19 07/30/19 07/30/19 06:10 06:10 09:20 Creatine Kinase 110 CK-MB (CK-2) 0.90 Troponin I < 0.012 < 0.012 Impressions: Chest X-Ray 07/30/19 00:00 IMPRESSION: NO ACUTE RADIOGRAPHIC FINDING IN THE CHEST. All labs, radiographs, diagnostic studies and EKGs were personally reviewed: Yes In addition, reports of radiographic and diagnostic studies were read: Yes Assessment and Plan - Diagnosis (1) Alcohol dependence Qualifiers: Substance use status: in withdrawal Complication of substance-induced condition: uncomplicated Qualified Code(s): F10.230 - Alcohol dependence with withdrawal, uncomplicated Is this a current diagnosis for this admission?: Yes Plan: He has been through [facility] several times before. Wants to try antabuse from primary care Physician. He has 1st degree male relative who are alcoholic as well. He is out of restraints now and if he remains calm will downgrade later today. (2) Alcohol withdrawal Qualifiers: Complication of substance-induced condition: with delirium Qualified Code(s): F10.231 - Alcohol dependence with withdrawal delirium Is this a current diagnosis for this admission?: Yes Plan: As above. Doing much better. Continue ativan discontinue precedex. (3) Vomiting Qualifiers: Vomiting type: unspecified Vomiting Intractability: intractable Nausea presence: with nausea Qualified Code(s): R11.2 - Nausea with vomiting, unspecified Is this a current diagnosis for this admission?: Yes Plan: Resolved (4) Hypernatremia Is this a current diagnosis for this admission?: Yes Plan: Resolved Plan Summary: Downgrade if he remains oriented and calm later today. Critical Time Critical Time (minutes): 35 Level of Care: ICU Anticipated discharge: Home Within: within 72 hours -: 1. The care of a critical patient is a dynamic process. This note is a sales representative door to door synopsis but static in nature. The timeframe for treatments given in order is not necessarily the actual time these treatments may have been done. 2. This patient requires critical care secondary to ongoing requirements for therapy not offered or safe outside the critical care environment. Transfer to a lower level of care will result in altered life or limb morbidity and mortality. 3. Multidisciplinary rounds completed. 4. ABCDE bundle addressed.
[2019-08-02] MEDS: PANTOPRAZOLE SODIUM 40 MG VIAL IV SCH (11:57)
[2019-08-02] MEDS: GUAIFENESIN SYRP 200 MG/10 ML UDC PO PRN (17:36)
[2019-08-03] MEDS: DIAZEPAM INJ 10 MG/2 ML DISP.SYRIN IV SCH (05:17)
[2019-08-03] MEDS: HEPARIN SOD (PORCINE) 5,000 UNIT/ML 1 ML VIAL SUBCUT SCH (05:17)
[2019-08-03] MEDS: NORMAL SALINE 1000 ML 1,000 ML IV PRN (05:18)
[2019-08-03 07:53] VITALS: BP 155/100
[2019-08-03] MEDS ORDERED: DIAZEPAM 5 MG TABLET PO PRN (08:04)
[2019-08-03] MEDS ORDERED: DISULFIRAM 250 MG TABLET PO SCH (10:00)
[2019-08-03] MEDS: CARVEDILOL 6.25 MG TABLET PO SCH (11:06)
[2019-08-03] MEDS: FLUTICASONE NASAL SPRAY 50 MCG/SPRY 120 SPRAY/16 GM NASL SCH (11:08)
--- NOTE | 2019-08-03 11:59 | PDOC DISCHARGE SUMMARY ---
Impression - Admit/DC Date/PCP Admission Date/Primary Care Provider: 07/30/19 12:08 Discharge Date: 08/03/19 - Discharge Diagnosis (1) Alcohol dependence Is this a current diagnosis for this admission?: Yes (2) Alcohol withdrawal Is this a current diagnosis for this admission?: Yes (3) Vomiting Is this a current diagnosis for this admission?: Yes (4) Hypernatremia Is this a current diagnosis for this admission?: Yes - Assessment Summary: This patient is a 54 yo man with known alcoholism by his own admission. Has tried to stop on his own and finds himself in alcohol WD. He requiered the ICU four violent restraints and the need for precedex. He is currently back to baseline, conversant. He has had no ativan, is on PRN valium and now antabuse. He is ready for discharge and his will be in control of antabuse and valium. He will follow up with his primary who has treated him for this before. - Additional Information Resuscitation Status: Full Code Referrals: LOCALMD,NO [NO LOCAL MD] - Follow up as needed Home Medications: No Home Medications 07/30/19 History of Present Illiness History of Present Illness: This man is an alcoholic X 20 years or more. He has tried to quit and has been through WD before, once requiring intubation. This time he required violent restraints and precedex, hence the ICU. He has used antabuse and wants to try again. He does not want inpatient or out patient rehab. Hospital Course Hospital Course: He came to the ICU and placed in 4 point violent restraints for < 1 day. He has recovered quickly and according to him and he is back to baseline. Physical Exam Vital Signs: Temp Pulse Resp BP Pulse Ox 97.8 F 90 18 155/100 H 97 08/03/19 07:52 08/03/19 07:52 08/03/19 07:52 08/03/19 07:52 08/03/19 07:52 Intake & Output 08/02/19 08/03/19 08/04/19 06:59 06:59 06:59 Intake Total 5134 3886 Output Total 2475 1000 320 Balance -381 2886 -320 Weight 81.7 kg 81.6 kg General appearance: PRESENT: no acute distress, well-developed, well-nourished Head exam: PRESENT: atraumatic, normocephalic Eye exam: PRESENT: conjunctiva pink, EOMI, PERRLA. ABSENT: scleral icterus Ear exam: PRESENT: normal external ear exam Mouth exam: PRESENT: moist, tongue midline Neck exam: ABSENT: carotid bruit, JVD, lymphadenopathy, thyromegaly Respiratory exam: PRESENT: clear to auscultation sylvester. ABSENT: rales, rhonchi, wheezes Cardiovascular exam: PRESENT: RRR. ABSENT: diastolic murmur, rubs, systolic murmur GI/Abdominal exam: PRESENT: normal bowel sounds, soft. ABSENT: distended, guarding, mass, organolmegaly, rebound, tenderness Rectal exam: PRESENT: deferred Extremities exam: PRESENT: full ROM. ABSENT: calf tenderness, clubbing, pedal edema Neurological exam: PRESENT: alert, awake, oriented to person, oriented to place, oriented to time, oriented to situation, CN II-XII grossly intact. ABSENT: motor sensory deficit Skin exam: PRESENT: dry, intact, warm. ABSENT: cyanosis, rash Results Laboratory Results: WBC 6.3 10^3/uL (4.0-10.5) 08/01/19 06:39 RBC 4.67 10^6/uL (4.35-5.55) 08/01/19 06:39 Hgb 13.6 g/dL (13.5-17.0) 08/01/19 06:39 Hct 40.3 % (37.9-51.0) 08/01/19 06:39 MCV 86 fl (80-97) 08/01/19 06:39 MCH 29.1 pg (27.0-33.4) 08/01/19 06:39 MCHC 33.6 g/dL (32.0-36.0) 08/01/19 06:39 RDW 15.6 % (11.5-14.0) H 08/01/19 06:39 Plt Count 123 10^3/uL (150-450) L 08/01/19 06:39 Lymph % (Auto) 23.4 % (13-45) 07/30/19 06:10 [place]ascock % (Auto) 5.5 % (3-13) 07/30/19 06:10 Eos % (Auto) 4.1 % (0-6) 07/30/19 06:10 Baso % (Auto) 0.7 % (0-2) 07/30/19 06:10 Absolute Neuts (auto) 6.9 10^3/uL (1.7-8.2) 07/30/19 06:10 Absolute Lymphs (auto) 2.4 10^3/uL (0.5-4.7) 07/30/19 06:10 Absolute Monos (auto) 0.6 10^3/uL (0.1-1.4) 07/30/19 06:10 Absolute Eos (auto) 0.4 10^3/uL (0.0-0.6) 07/30/19 06:10 Absolute Basos (auto) 0.1 10^3/uL (0.0-0.2) 07/30/19 06:10 Seg Neutrophils % 66.3 % (42-78) 07/30/19 06:10 Sodium 140.7 mmol/L (137-145) 08/02/19 03:56 Potassium 4.5 mmol/L (3.6-5.0) D 08/02/19 03:56 Chloride 110 mmol/L (98-107) H 08/02/19 03:56 Carbon Dioxide 24 mmol/L (22-30) 08/02/19 03:56 Anion Gap 7 (5-19) 08/02/19 03:56 BUN 5 mg/dL (7-20) L 08/02/19 03:56 Creatinine 0.76 mg/dL (0.52-1.25) 08/02/19 03:56 Est GFR ( Amer) > 60 (>60) 08/02/19 03:56 Est GFR (MDRD) Non-Af > 60 (>60) 08/02/19 03:56 Glucose 77 mg/dL (75-110) 08/02/19 03:56 Calcium 7.9 mg/dL (8.4-10.2) L 08/02/19 03:56 Phosphorus 3.5 mg/dL (2.5-4.5) 08/02/19 03:56 Magnesium 1.7 mg/dL (1.6-2.3) 08/02/19 03:56 Total Bilirubin 0.5 mg/dL (0.2-1.3) 07/30/19 06:10 Direct Bilirubin 0.3 mg/dL (0.0-0.4) 07/30/19 06:10 Neonat Total Bilirubin Not Reportable 07/30/19 06:10 Neonat Direct Bilirubin Not Reportable 07/30/19 06:10 Neonat Indirect Bili Not Reportable 07/30/19 06:10 AST 58 U/L (17-59) 07/30/19 06:10 ALT 21 U/L (<50) 07/30/19 06:10 Alkaline Phosphatase 122 U/L (38-126) 07/30/19 06:10 Creatine Kinase 110 U/L (55-170) 07/30/19 06:10 CK-MB (CK-2) 0.90 ng/mL (<4.55) 07/30/19 06:10 Troponin I < 0.012 ng/mL 07/30/19 09:20 Total Protein 8.4 g/dL (6.3-8.2) H 07/30/19 06:10 Albumin 4.4 g/dL (3.5-5.0) 07/30/19 06:10 Lipase 59.1 U/L (23-300) 07/30/19 09:20 Serum Alcohol 78 mg/dL (NONE DETECTED) 07/30/19 09:20 07/30/19 07/30/19 06:10 09:20 CK-MB (CK-2) 0.90 Troponin I < 0.012 < 0.012 EKG Comments: SR Impressions: Chest X-Ray 07/30/19 00:00 IMPRESSION: NO ACUTE RADIOGRAPHIC FINDING IN THE CHEST. Plan Health Concerns: Relapse of drinking Plan of Treatment: Antabuse 500 mg a day X 14 days. See primary care within that timeframe. He will have PRN valium. Meds to be controlled by . Goals: halfway sobriety. Critical Time: 30 Level of Care: MEDICAL Stroke Is this a Stroke Patient?: No Acute Heart Failure - Is this a Heart Failure Patient?: No
== END 2019-08-03 12:30 | disposition home or self-care (01) | DRG 897 ==
LOC: ER 05:05 → EH 12:08 → 3W 17:35 → ICU 08-01 08:49
PROVIDERS: ADMIT Internal Medicine; ATTEND Anesthesiology
PROC: HZ2ZZZZ Detoxification Services for Substance Abuse Treatment (ICD-10-PCS; principal; 2019-07-30)
DX: F10.230 Alcohol dependence with withdrawal, uncomplicated (principal); E87.0 Hyperosmolality and hypernatremia; Z86.74 Personal history of sudden cardiac arrest; F10.231 Alcohol dependence with withdrawal delirium; I10 Essential (primary) hypertension; K21.9 Gastro-esophageal reflux disease without esophagitis; F32.9 Major depressive disorder, single episode, unspecified; F41.1 Generalized anxiety disorder; Y90.3 Blood alcohol level of 60-79 mg/100 ml; J06.9 Acute upper respiratory infection, unspecified; R00.0 Tachycardia, unspecified; R11.2 Nausea with vomiting, unspecified; Z88.8 Allergy status to other drugs, medicaments and biological substances
CPT/HCPCS: 36415; 71046; 80048; 80053; 80307; 82550; 82553; 83690; 83735; 84100; 84484; 85025; 85027; 93005; 93010; 96361; 96374; 96375; 96376; 99238; 99285; 99291; C9113; J1200; J1630; J1644; J2060; J2550; J2765; J3360; J3411; J3475; J3480; J3490; J7030; S0119